=== PATIENT | female | born 1950 | race Caucasian/White ===

== ENCOUNTER → 2023-10-16 09:37 | Outpatient (REF) | payer MEDICARE, SELFPAY | LOC: SDSPAT 09:37 | PROVIDERS: ATTENDING PHYSICIAN Otolaryngology; FAMILY PHYSICIAN Nurse Practitioner Family | DX: J34.2 Deviated nasal septum (principal); J34.3 Hypertrophy of nasal turbinates | CPT/HCPCS: 36415; 93005 ==

== ENCOUNTER 2024-01-09 11:52 | Outpatient (RCR) | payer MEDICARE, SELFPAY | END 2024-01-09 23:59 | disposition home or self-care (01) | LOC: RPT 11:52 | PROVIDERS: ATTENDING PHYSICIAN Internal Medicine Gastroenterology | DX: R15.2 Fecal urgency (principal); R27.8 Other lack of coordination; M53.88 Other specified dorsopathies, sacral and sacrococcygeal region; Z73.6 Limitation of activities due to disability | CPT/HCPCS: 97110; 97112; 97162; 97535 ==

== ENCOUNTER 2024-01-23 06:26 | Day surgery (SDC) | payer MEDICARE, SELFPAY ==
[2024-01-23] VITALS (9 sets, daily range): BP systolic 109–134; BP diastolic 50–75; BMI 23.0
== END 2024-01-23 15:55 | disposition home or self-care (01) ==
LOC: SDS 06:26
PROVIDERS: ATTENDING PHYSICIAN Otolaryngology
DX: J34.2 Deviated nasal septum (principal); J34.3 Hypertrophy of nasal turbinates; R06.83 Snoring
CPT/HCPCS: 30520; 30140

== ENCOUNTER 2024-03-05 09:58 | Outpatient (RCR) | payer MEDICARE, SELFPAY | END 2024-03-05 23:59 | disposition home or self-care (01) | LOC: RPT 09:58 | PROVIDERS: ATTENDING PHYSICIAN Internal Medicine Gastroenterology | DX: R15.2 Fecal urgency (principal); R27.8 Other lack of coordination; M53.88 Other specified dorsopathies, sacral and sacrococcygeal region; Z73.6 Limitation of activities due to disability | CPT/HCPCS: 97110 ==

== ENCOUNTER 2024-04-09 12:05 | Outpatient (RCR) | payer MEDICARE, SELFPAY | END 2024-04-09 23:59 | disposition home or self-care (01) | LOC: RPT 12:05 | PROVIDERS: ATTENDING PHYSICIAN Internal Medicine Gastroenterology | DX: R15.2 Fecal urgency (principal); R27.8 Other lack of coordination; M53.88 Other specified dorsopathies, sacral and sacrococcygeal region; Z73.6 Limitation of activities due to disability | CPT/HCPCS: 97110; 97112; 97530 ==

== ENCOUNTER 2024-05-07 12:18 | Outpatient (RCR) | payer MEDICARE, SELFPAY | END 2024-05-07 23:59 | disposition home or self-care (01) | LOC: RPT 12:18 | PROVIDERS: ATTENDING PHYSICIAN Internal Medicine Gastroenterology | DX: R15.2 Fecal urgency (principal); R27.8 Other lack of coordination; M53.88 Other specified dorsopathies, sacral and sacrococcygeal region; Z73.6 Limitation of activities due to disability | CPT/HCPCS: 97110; 97112 ==

== ENCOUNTER 2024-06-02 12:28 | Outpatient (RCR) | payer MEDICARE, SELFPAY | END 2024-06-02 23:59 | disposition home or self-care (01) | LOC: RPT 12:28 | PROVIDERS: ATTENDING PHYSICIAN Internal Medicine Gastroenterology | DX: R15.2 Fecal urgency (principal); R27.8 Other lack of coordination; M53.88 Other specified dorsopathies, sacral and sacrococcygeal region; Z73.6 Limitation of activities due to disability | CPT/HCPCS: 97110; 97112 ==

== ENCOUNTER 2024-06-18 14:55 | Outpatient (RCR) | payer MEDICARE, SELFPAY | END 2024-07-01 10:24 | disposition home or self-care (01) | LOC: RPT 14:55 | PROVIDERS: ATTENDING PHYSICIAN Internal Medicine Gastroenterology | DX: R15.2 Fecal urgency (principal); R27.8 Other lack of coordination; M53.88 Other specified dorsopathies, sacral and sacrococcygeal region; Z73.6 Limitation of activities due to disability | CPT/HCPCS: 97110; 97112 ==

== ENCOUNTER → 2024-07-07 09:27 | Outpatient (REF) | payer MEDICARE, SELFPAY ==
[2024-07-07 10:20] LABS: Hematocrit 39.1 % (37.0-47.0); Hemoglobin 13.4 g/dL (12.0-16.0); Mean Corp Hgb Conc. 34.3 g/dL (33.0-37.0); Mean Corpuscular Hgb 31.2 pg (27.0-31.0); Mean Corpuscular Volume 91.1 fL (81.0-99.0); Mean Platelet Volume 9.8 fL (7.4-10.4); Platelet Count 280 10^3/uL (130-400); Red Blood Cell Count 4.29 10^6/uL (4.20-5.40); Red Cell Dist. Width 12.8 % (11.5-14.5); White Blood Cell Count 7.5 10^3/uL (4.8-10.8)
[2024-07-07 11:37] LABS: Blood Urea Nitrogen 20 mg/dl (7-17); Calcium 10.3 mg/dl (8.4-10.2); Carbon Dioxide 29 mmol/L (22-30); Chloride 106 mmol/L (98-107); Glucose 86 mg/dl (70-99); Potassium 5.6 mmol/L (3.5-5.1); Sodium 142 mmol/L (135-145); eGFR > 60.00
[2024-07-07 13:53] VITALS: BMI 23.4
== END ==
LOC: SDSPAT 09:27
PROVIDERS: ATTENDING PHYSICIAN Surgery; FAMILY PHYSICIAN Family Medicine; OTHER PHYSICIAN Physician Assistant
DX: Z01.818 Encounter for other preprocedural examination (principal)
CPT/HCPCS: 36415; 80048; 85027; 93005

== ENCOUNTER → 2024-07-07 10:24 | Outpatient (REF) | payer MEDICARE, SELFPAY ==
[2024-07-07 13:46] LABS: ALT (SGPT) 23 U/L (0-35); AST (SGOT) 32 U/L (14-36); Albumin 4.9 g/dl (3.5-5.0); Alkaline Phosphatase 92 U/L (38-126); Blood Urea Nitrogen 20 mg/dl (7-17); Calcium 10.3 mg/dl (8.4-10.2); Carbon Dioxide 26 mmol/L (22-30); Chloride 105 mmol/L (98-107); Glucose 81 mg/dl (70-99); HDL Cholesterol 88 mg/dl; LDL Cholesterol, Calculated 122 mg/dl; Potassium 4.7 mmol/L (3.5-5.1); Sodium 142 mmol/L (135-145); Total Bilirubin 1.9 mg/dl (0.2-1.3); Total Cholesterol 225 mg/dl (50-199); Total Protein 7.4 g/dl (6.3-8.2); Triglyceride 78 mg/dl (10-149); Very Low Density Lipoprotein 15 mg/dl (0-30); eGFR > 60.00
[2024-07-07 14:07] LABS: TSH Reflex To Free T4 1.89 uIU/ml (0.47-4.68)
== END ==
LOC: REG 10:24
PROVIDERS: ATTENDING PHYSICIAN Physician Assistant
DX: E78.00 Pure hypercholesterolemia, unspecified (principal); I10 Essential (primary) hypertension; E34.9 Endocrine disorder, unspecified; E87.5 Hyperkalemia; R53.1 Weakness; E83.52 Hypercalcemia
CPT/HCPCS: 36415; 80053; 80061; 84443

== ENCOUNTER 2024-07-28 06:34 | Day surgery (SDC) | payer MEDICARE, SELFPAY ==
[2024-07-28] VITALS (13 sets, daily range): BP systolic 109–147; BP diastolic 60–86; BMI 23.1
[2024-07-28] MEDS: VANCOCIN 200 IV (08:57)
[2024-07-28] MEDS: NORMOSOL-R/PLASMALYTE-A 1000 IV (08:58)
[2024-07-28] MEDS: TYLENOL 1000 MG PO (08:59)
--- NOTE | 2024-07-28 09:03 | HP.FOC2 ---
Focused History & Physical
Chief Complaint
HPI:
Chief Complaint: Diaphragmatic hernia
HPI / Indication for Planned Procedure: Patient is a 73-year-old female who has a large right sided anterior diaphragmatic/Morgagni hernia previously discovered during screening CT chest imaging secondary to prior history of smoking. She does have
occasional episodes of substernal chest pain and discomfort which may be difficult to differentiate from her GERD but does not necessarily seem to be related to food or dietary intake.
Relevant Past Medical History: Other (Spinal stenosis, lumbar; depression/anxiety; osteoarthritis; fibromyalgia; GERD and history of gastric ulcers from NSAID/tobacco use; history of tobacco use -quit 3 months ago; IBS)
Relevant Social History: Tobacco Use (Recently quit, 3 months ago)
Relevant Family History: Negative
Relevant Past Surgical History: Positive for (Laminectomy, bilateral hip replacement, RIH repair, knee surgeries, bunionectomy, spinal injections, cataracts)
Review of Systems
Review of Pertinent Systems: All Systems Negative
Medication
See Medication form for detailed medications: Yes
Medication List (including Herbals & OTC):
Fish Oil 1,400 mg PO HS 10/17/23
Medical Marijuana 1 dose inhalation PRN PRN Pain 10/17/23
Vitamin D3 1 cap PO DAILY 10/17/23
famotidine 20 mg tablet 20 mg PO BID 10/17/23
gabapentin 100 mg capsule 300 mg PO BID 10/17/23
lamotrigine 25 mg tablet 100 mg PO DAILY 10/17/23
lisinopril 10 mg tablet 10 mg PO HS 10/17/23
mirtazapine 15 mg tablet 15 mg PO HS 10/17/23
multivitamin 1 tab PO DAILY 10/17/23
vilazodone 40 mg tablet 40 mg PO DAILY 10/17/23
Medications Reviewed: Yes
Allergies and Reactions
Patient has Allergies: Yes
Noted Allergies and Reactions:
Allergy/AdvReac Type Severity Reaction Status Date / Time
Penicillins Allergy Unknown Swelling Verified 07/28/24 08:52
Sulfa (Sulfonamide Allergy Unknown Swelling Verified 07/28/24 08:52
Antibiotics)
bee pollen Allergy Swelling Verified 07/28/24 08:52
epinephrine Allergy Unknown Verified 07/28/24 08:52
silver Allergy Blisters Verified 07/28/24 08:52
[From Tegaderm AG Mesh]
Pertinent Physical Exam
All Other Systems: Negative
Head/Neck: Normal
Lungs: Normal
Heart: Normal
Abdomen: Normal
Extremities: Normal
Neurological: Normal
Diagnosis / Assessment
73-year-old female presenting for scheduled operative correction anterior diaphragmatic/Morgagni hernia.
Plan / Procedure
Robotic assisted laparoscopic repair of diaphragmatic hernia with mesh
Anesthesia/Sedation to be done by Anesthesia Provider: Yes
--- NOTE | 2024-07-28 09:07 | W.SUR.PREOP ---
Pre-Operative Surgical Note
-
I have examined this patient prior to the performance of the scheduled procedure.
The patient's condition is unchanged from the time of the current History and
Physical and the patient is able to undergo the scheduled procedure.
--- NOTE | 2024-07-28 12:42 | W.IMMPOSTOP ---
Addendum entered and electronically signed by Axel Carrizales MD 07/28/24 12:59:
# [id number]
The assistance of Reema Gee PA-C was required due to the complexity of the procedure. During the procedure Remea Gee PA-C assisted with port placement, robotic instrumentation and suture material exchanges, and closure of the surgical incision
sites. I was present for the entirety of the operative procedure.
Original Note:
Surgical Immed Post Op Note
-
Primary Surgeon: All
Assisting Surgeon: Reema Gee PA-c
Pre-op Diagnosis: Anterior diaphragmatic hernia (Morgagni Hernia)
Post-op Diagnosis: Anterior diaphragmatic hernia (Morgagni Hernia)
Procedure Performed: Robotic assisted laparoscopic repair anterior diaphragmatic hernia with mesh
Anesthesia Type: GETA +0.25% Marcaine
Specimen / Cultures: None
Estimated Blood Loss: 24 mL
Complications: None immediate
Operative Findings: Fairly large anterior diaphragmatic (Morgagni) hernia containing omentum which was reduced out of the defect. Entire hernia sac reduced as well. Fascial defect about 3.5 to 4 cm horizontally. Majority of hernia sac into right
anterior chest, smaller left-sided component. No evidence of pleural entry with dissection. Fascial defect closed with running continuous 0 PDS strata fix symmetric suture. 10 x 15 cm Bard soft mesh reinforcement secured with interrupted 2-0
Vicryl.
[2024-07-28] MEDS: NSS 1000 IV (13:27)
[2024-07-28] MEDS: TORADOL 10 MG IV (13:34)
--- NOTE | 2024-07-28 15:06 | PTCARENOTE ---
Received patient from PACU around 1420 via bed in stable condition. 3 lap sites and 1 puncture site to abdomen BECKY C/D/I. Patient oriented to room. Call menendez in reach.
[2024-07-28] MEDS: DILAUDID 0.5 MG IV (17:43)
[2024-07-28] MEDS: PEPCID 20 MG PO (20:10)
[2024-07-28] MEDS: NON-FORMULARY ITEM 15 APPFUL VAG (20:16)
[2024-07-28] MEDS: NEURONTIN 300 MG PO (20:20)
[2024-07-28] MEDS: DILAUDID 0.25 MG IV (20:32)
[2024-07-28] MEDS: ZESTRIL 10 MG PO (22:13)
[2024-07-28] MEDS: ZOFRAN 4 MG IV (22:30)
[2024-07-29] MEDS: NSS 1000 IV (02:25)
[2024-07-29 03:35] VITALS: BP 126/62
--- NOTE | 2024-07-29 07:36 | W.PN.GS2 ---
Today's Communication / Plan
-
-- DC
Assessment / Plan
-
Patient is a 73 yo F POD#1 s/p RAL Morgagni hernia repair
Recovering well. No post-operative concerns.
-- Regular diet
-- Pain control: Tylenol, Toradol, Oxycodone
-- HLIV
-- Home meds
-- DVT: Lovenox
-- DC today
Subjective Data
-
Date of Service: July 29, 2024
No complaints. Pain well controlled. Tolerated clears - no nausea or emesis. Voiding. Ambulating.
Objective Data
-
Intake and Output
07/28/24 07/29/24 07/30/24
06:59 06:59 06:59
Intake Total 2460 / 2460
Output Total 400 / 400
Balance 2059 / 2059
Intake:
Oral fluids 480 / 480
IV fluids (Total) 1979 / 1979
normosol 100 / 100
Output:
Urine, Voided 400 / 400
Other:
Number of approximated LARGE 1
amounts of urine
Vital Signs
Temp Pulse Resp BP Pulse Ox
97.4 F 59 17 126/62 97
07/29/24 03:35 07/29/24 03:35 07/29/24 03:35 07/29/24 03:35 07/29/24 03:35
Physical Exam
-
Gen: NAD
Abd: soft, NT/ND, non-peritoneal, incisions with some erythema surrounding the incision 2-3 mm, no ecchymosis or drainage, patient denies pain or itching
--- NOTE | 2024-07-29 07:39 | W.DS.TRANS ---
DC Summary - Questioned Documents Examiner
-
Discharge Instructions:
Sleep Apnea Risk Intermediate
Discharge Diagnosis/Procedures Anterior diaphragmatic hernia. Robotic assisted
laparoscopic repair diaphragmatic hernia with
mesh
Diet As tolerated,Regular
Additional Diets Smaller meals initially after surgery as
abdominal bloating and distention may be common
for the first few days
Activity No strenuous activity
Additional Activity No lifting over 15 pounds for 6 weeks
postoperatively
Driving Restrictions No driving for 24 hours
Bathing Restrictions OK to Shower
Wound Care Glue at surgical sites typically peels off in 2
to 3 weeks
Instructions:
Stand-Alone Forms:
Changes to Home Medications: No
Discharge Medications:
DC Medications w/original date entered in [employer]
Fish Oil 1,400 mg PO HS 10/17/23
Medical Marijuana 1 dose inhalation PRN PRN Pain 10/17/23
Vitamin D3 1 cap PO DAILY 10/17/23
famotidine 20 mg tablet 20 mg PO BID 10/17/23
gabapentin 100 mg capsule 300 mg PO BID 10/17/23
lamotrigine 25 mg tablet 100 mg PO DAILY 10/17/23
lisinopril 10 mg tablet 10 mg PO HS 10/17/23
mirtazapine 15 mg tablet 15 mg PO HS 10/17/23
multivitamin 1 tab PO DAILY 10/17/23
vilazodone 40 mg tablet 40 mg PO DAILY 10/17/23
acetaminophen 500 mg tablet (Tylenol Extra Strength) 1,000 mg (2 x 500 mg) PO Q6HPRN PRN mild pain #1 tab 07/28/24
clotrimazole 1 % vaginal cream 1 appful vaginal BID 07/28/24
oxycodone 5 mg tablet 5 mg PO Q4HPRN PRN breakthrough/severe pain #10 tabs 07/28/24
Home Medication Changes
Pending Results: No
[2024-07-29 07:42] VITALS: BP 118/53
[2024-07-29] MEDS: NEURONTIN 300 MG PO (08:28)
[2024-07-29] MEDS: PEPCID 20 MG PO (08:28)
[2024-07-29] MEDS: LAMICTAL 100 MG PO (08:28)
[2024-07-29] MEDS: NON-FORMULARY ITEM 40 MG PO (08:28)
[2024-07-29] MEDS: NON-FORMULARY ITEM 1 APPFUL VAG (08:29)
[2024-07-29] MEDS: TORADOL 10 MG IV (08:38)
--- NOTE | 2024-07-29 10:55 | CM ---
CM met with pt bedside
DC order noted
No dc needs noted
Neighbor will provide ride home
Discharge Disposition- home, no needs
[2024-07-29 11:10] VITALS: BP 126/63
--- NOTE | 2024-07-29 11:11 | PTCARENOTE ---
Went over discharge instructions with patient and removed IV. Awaiting ride home.
== END 2024-07-29 11:20 | disposition home or self-care (01) ==
LOC: SDS 06:34
PROVIDERS: ATTENDING PHYSICIAN Surgery; FAMILY PHYSICIAN Family Medicine
DX: Q79.0 Congenital diaphragmatic hernia (principal)
CPT/HCPCS: 43282; C1781

== ENCOUNTER → 2024-09-15 07:27 | Outpatient (REF) | payer MEDICARE, SELFPAY | LOC: MRI 3T 07:27 | PROVIDERS: ATTENDING PHYSICIAN Pain Medicine Interventional Pain Medicine; FAMILY PHYSICIAN Physician Assistant | DX: M54.16 Radiculopathy, lumbar region (principal) | CPT/HCPCS: 72148 ==

== ENCOUNTER → 2025-01-05 10:47 | Outpatient (REF) | payer MEDICARE, SELFPAY | LOC: WDC 10:47 | PROVIDERS: ATTENDING PHYSICIAN Physician Assistant | DX: Z12.31 Encounter for screening mammogram for malignant neoplasm of breast (principal); F17.210 Nicotine dependence, cigarettes, uncomplicated; M85.89 Other specified disorders of bone density and structure, multiple sites | CPT/HCPCS: 71271; 77063; 77067; 77080 ==

== ENCOUNTER → 2025-04-15 08:04 | Outpatient (REF) | payer MEDICARE, SELFPAY ==
[2025-04-15 11:39] LABS: ALT (SGPT) 29 U/L (0-35); AST (SGOT) 29 U/L (14-36); Albumin 4.5 g/dl (3.5-5.0); Alkaline Phosphatase 86 U/L (38-126); Blood Urea Nitrogen 18 mg/dl (7-17); Carbon Dioxide 25 mmol/L (22-30); Chloride 112 mmol/L (98-107); Glucose 95 mg/dl (70-99); HDL Cholesterol 68 mg/dl; LDL Cholesterol, Calculated 61 mg/dl; Sodium 142 mmol/L (135-145); Total Bilirubin 1.2 mg/dl (0.2-1.3); Total Cholesterol 139 mg/dl (50-199); Total Protein 6.9 g/dl (6.3-8.2); Triglyceride 54 mg/dl (10-149); Very Low Density Lipoprotein 10 mg/dl (0-30); eGFR 59.86
== END ==
LOC: PAVMRI 08:04
PROVIDERS: ATTENDING PHYSICIAN Orthopaedic Surgery Hand Surgery; FAMILY PHYSICIAN Physician Assistant
DX: M25.511 Pain in right shoulder (principal); E78.00 Pure hypercholesterolemia, unspecified; Z72.0 Tobacco use
CPT/HCPCS: 36415; 73221; 80053; 80061

== ENCOUNTER → 2025-08-29 09:29 | Outpatient (REF) | payer MEDICARE, SELFPAY ==
[2025-08-29 10:48] LABS: Hematocrit 44.5 % (37.0-47.0); Hemoglobin 14.7 g/dL (12.0-16.0); Mean Corp Hgb Conc. 33.0 g/dL (33.0-37.0); Mean Corpuscular Volume 97.6 fL (81.0-99.0); Nucleated Red Blood Cells % 0 %; Platelet Count 306 10^3/uL (130-400); Red Cell Dist. Width 12.5 % (11.5-14.5)
[2025-08-29 11:11] LABS: Blood Urea Nitrogen 22 mg/dl (7-17); Calcium 9.8 mg/dl (8.4-10.2); Carbon Dioxide 29 mmol/L (22-30); Chloride 108 mmol/L (98-107); Glucose 89 mg/dl (70-99); Potassium 4.8 mmol/L (3.5-5.1); Sodium 142 mmol/L (135-145); eGFR 59.86
== END ==
LOC: REG 09:29
PROVIDERS: ATTENDING PHYSICIAN Orthopaedic Surgery Hand Surgery; FAMILY PHYSICIAN Physician Assistant
DX: Z01.818 Encounter for other preprocedural examination (principal)
CPT/HCPCS: 36415; 80048; 85025; 93005